=== PATIENT | male | born 1990 | race Asian ===

== ENCOUNTER → 2023-01-19 | Outpatient (CLI) | payer OTHER | LOC: M RAD 09:41 | PROVIDERS: ATTEND Physician Assistant | DX: M79.662 Pain in left lower leg (principal); M79.661 Pain in right lower leg | CPT/HCPCS: 78315; A9503 ==

== ENCOUNTER 2023-08-09 10:15 | Emergency (ER) | payer OTHER ==
[~2023-08-09] VITALS: Ht 167.6 cm; Wt 74.0 kg
[2023-08-09 10:16] VITALS: BP 164/92; TEMP 97.4; O2SAT 97
[2023-08-09] MEDS ORDERED: IBUP-1114 PO (10:20)
[2023-08-09] MEDS ORDERED: DICY-61 (10:20)
[2023-08-09] MEDS ORDERED: NAPR-885 (10:20)
== END 2023-08-09 12:51 | disposition left against medical advice (07) ==
LOC: M ED 10:15
DX: Z53.21 Procedure and treatment not carried out due to patient leaving prior to being seen by health care provider (principal)

== ENCOUNTER 2023-08-09 15:00 | Emergency (ER) | payer OTHER ==
[~2023-08-09] VITALS: Ht 167.6 cm; Wt 73.7 kg
[~2023-08-09 15:00] MED LIST: DICY-61; IBUP-1114 PO; NAPR-885
[2023-08-09 17:09] VITALS: TEMP 97.6
[2023-08-09] MEDS: diphenhydrAMINE 50MG/ML VIAL IV ONE (17:30)
[2023-08-09] MEDS: NS 1,000 ML IV ONE (17:40)
[2023-08-09] MEDS: METOCLOPRAMIDE INJ 10MG/2ML VIAL IV ONE (17:40)
[2023-08-09] MEDS: dexAMETHasone 20MG/5ML VIAL IV ONE (17:40)
[2023-08-09 18:38] VITALS: BP 144/91; O2SAT 98
== END 2023-08-09 18:39 | disposition home or self-care (01) ==
LOC: M ED 15:00
DX: R51.9 Headache, unspecified (principal)
CPT/HCPCS: 70450; 96361; 96374; 96375; 99284; J1100; J2765

== ENCOUNTER → 2023-08-27 | Outpatient (REF) | LOC: M PLAIMG 10:13 | PROVIDERS: ATTEND Internal Medicine | DX: R06.02 Shortness of breath (principal) ==